=== PATIENT | female | born 1945 | race Caucasian/White ===

== ENCOUNTER 2018-03-04 16:41 | Emergency (ER) | payer OTHER ==
[2018-03-04] MEDS: LIDOCAINE 2% VISC 15 ML CUP PO (17:30)
== END 2018-03-04 19:53 | disposition home or self-care (01) ==
LOC: E/R 16:41
DX: S27.818A Other injury of esophagus (thoracic part), initial encounter (principal); R40.2252 Coma scale, best verbal response, oriented, at arrival to emergency department; R40.2362 Coma scale, best motor response, obeys commands, at arrival to emergency department; R40.2142 Coma scale, eyes open, spontaneous, at arrival to emergency department; X58.XXXA Exposure to other specified factors, initial encounter; Y92.9 Unspecified place or not applicable
CPT/HCPCS: 70490; 99284-25